=== PATIENT | male | born 1985 | race Caucasian/White ===

== ENCOUNTER 2018-11-22 14:15 | Inpatient (IN) | payer MEDICAID ==
--- NOTE | 2018-11-22 14:51 | EDM.PDOC ---
ED HPI GENERAL MEDICAL PROBLEM - General Chief Complaint: Skin Complaint Stated Complaint: SKIN COMPLAINT - R ARM Time Seen by Provider: 11/22/18 14:26 Source of Information: Reports: Patient, RN Notes Reviewed History Limitations: Reports: No Limitations - History of Present Illness INITIAL COMMENTS - FREE TEXT/NARRATIVE: The patient states that he has his own tattoo gun at home, and that he touched up a tattoo on his right forearm about 10 days ago. He states that he developed 3 pustules within the tattoo about 7 days ago, that he squeezed, draining small amounts of pus from each. The pustules then dried up and essentially healed. Around 3 dose ago, a fourth pustule developed within the tattoo. He again squeezed this point, getting a large amount of pus out, but since then, he has developed significant swelling to the pustule area, as well as surrounding erythema and swelling. No recent fever. The patient's last oral intake was around 11:00 this morning. The patient does not have a PCP. Right Arm Pain Score (Numeric/FACES): 4 - Related Data Allergies Allergy/AdvReac Type Severity Reaction Status Date / Time No Known Allergies Allergy Verified 11/22/18 14:31 Home Meds: Home Meds . [No Known Home Meds] 11/22/18 [History] Past Medical History - Past Surgical History HEENT Surgical History: Reports: Oral Surgery (3 wisdom teeth extracted) Musculoskeletal Surgical History: Reports: Other (See Below) (Right ankle tendon repair) Social & Family History - Tobacco Use Smoking Status *Q: Current Every Day Smoker Years of Tobacco use: 15 Packs/Tins Daily: 1 - Caffeine Use Caffeine Use: Reports: Coffee - Alcohol Use Alcohol Use History: Yes Alcohol Use Frequency: Socially - Recreational Drug Use Recreational Drug Use: No - Living Situation & Occupation Living situation: Reports: , with Spouse, with Family (3 kids) 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 Most of the tattoo is filled with a circular area of swelling and erythema measuring approximately 8 cm in diameter, and central to this area of erythema is a comedone of swelling that is open in the center and draining purulent fluid. The central area in particular is tender. Neurovascular status of the right upper extremity is intact.) Course - Vital Signs Last Recorded V/S: Last Vital Signs Temp 37.1 C 11/22/18 14:25 Pulse 109 H 11/22/18 14:25 Resp 16 11/22/18 14:25 BP 154/97 H 11/22/18 14:25 Pulse Ox 100 11/22/18 14:25 - Orders/Labs/Meds Labs: Laboratory Tests 11/22/18 11/22/18 Range/Units 14:50 14:55 WBC 14.45 H (4.23-9.07) K/mm3 RBC 4.66 (4.63-6.08) M/mm3 Hgb 14.2 (13.7-17.5) gm/L Hct 42.5 (40.1-51.0) % MCV 91.2 (79.0-92.2) fl MCH 30.5 (25.7-32.2) pg MCHC 33.4 (32.2-35.5) g/dl RDW Std Deviation 43.5 (35.1-43.9) fL Plt Count 306 (163-337) K/mm3 MPV 10.8 (9.4-12.3) fl Neutrophils % (Manual) 72 H (40-60) % Band Neutrophils % 2 (0-10) % Lymphocytes % (Manual) 23 (20-40) % Atypical Lymphs % 0 % Monocytes % (Manual) 3 (2-10) % Eosinophils % (Manual) 0 L (0.8-7.0) % Basophils % (Manual) 0 L (0.2-1.2) Platelet Estimate Adequate RBC Morph Comment Normal MRSA (PCR) Positive H - Re-Assessments/Exams Free Text/Narrative Re-Assessment/Exam: 11/22/18 14:45 The abscess on the patient's right forearm appears to be fairly advanced, and may benefit from surgical debridement. Case discussed with Dr. Remy Appiah, surgeon environmental science instructor, at 14:44. He will come by the ED to evaluate the patient. 11/22/18 14:51 I have ordered a nasal swab MRSA by PCR screen. Based on the results, I will then order appropriate IV antibiotics. 11/22/18 15:22 Dr. Appiah has evaluated the patient. Because the patient ate around 11:00, it is too early for him to go for general anesthesia, therefore Dr. Appiah offered to perform an I&D under local anesthetic, noting that it will likely be inadequate, and will likely be painful. The patient is willing to proceed. Dr. Appiah noted that the patient will lose some of the tattoo, which the patient said he was okay with. 11/22/18 15:43 Dr. Appiah performed an I&D of the abscess here in the ED, recovering only a small amount of annular material. He said that the patient seems to have significant cellulitis. He is recommending admission to the hospital for IV antibiotics, noting that if the infection does not improve fairly soon, the patient was a risk of developing compartment syndrome. I checked with lab - the MRSA screen will be resulted around 16:13. 11/22/18 15:[address] Hathaway at 15:44. He he agreed to accept the patient for admission to the general medical floor. He would like me to add a CBC. 11/22/18 16:24 The MRSA by PCR screen has returned positive. I will start the patient on IV vancomycin. Departure - Departure Time of Disposition: 15:49 Disposition: DC/Tfer to Acute Hospital 02 Condition: Fair Clinical Impression: Cellulitis of right forearm - Discharge Information *PRESCRIPTION DRUG MONITORING PROGRAM REVIEWED*: Not Applicable *COPY OF PRESCRIPTION DRUG MONITORING REPORT IN PATIENT LANG: Not Applicable Referrals: PCP,None [Primary Care Provider] - Forms: ED Department Discharge
[2018-11-22] MEDS ORDERED: Lidocaine 1% 50 ML MDV INJECT STA (16:00)
[2018-11-22] MEDS ORDERED: Vancomycin 1.3 GM in Sodium Chloride 0.9% 250 ML IV STA (16:29)
[2018-11-22] MEDS ORDERED: Vancomycin 1 GM SDV ONE (16:40)
[2018-11-22] MEDS ORDERED: Vancomycin 500 MG SDV ONE (16:40)
[2018-11-22] MEDS ORDERED: HYDROmorphone 1 MG/ML Syringe IVPUSH ONE (16:57)
--- NOTE | 2018-11-22 16:57 | OR ---
DATE OF OPERATION: 11/22/2018 SURGEON: Remy Appiah MD PREOPERATIVE DIAGNOSIS: Abscess versus cellulitis of the right forearm. POSTOPERATIVE DIAGNOSIS: Cellulitis of the right forearm. OPERATION PERFORMED: Incision and drainage of abscess of the right forearm. COMPLICATIONS: None. ESTIMATED BLOOD LOSS: Minimal. ANESTHESIA: 2 mL of 1% lidocaine. DISPOSITION: Stable during the entirety and at the end of the procedure. FINDINGS: He has a near-circumferential area of cellulitis around the right forearm with several punctate areas of recent drainage. The central area of necrosis appears to be the area of maximum tenderness, a question of abscesses is there. After exploration, I identified just a small amount of pus, but the remainder of the exploration did not reveal pus, just indurated and erythematous thickened tender skin. INDICATIONS: The patient is a 32-year-old male who presented to the ED after having evacuated a pustule on his right arm. He has a tattoo kit at home. He has been touching up his tattoo on his right forearm by himself on his unsterilized needles. He had popped 2 pustules previously over the last several days. These have healed. However, yesterday, he developed increasing pain and tenderness at one location distal to the original pustule. He evacuated a large amount of pus overnight. His arm became more swollen and tender. He drained a large amount of pus this morning from the same site, however, he has had no relief from pain, and he presented to the ED. He was offered incision and drainage. He was fully informed of the major risks, benefits, and alternatives, the risks of being pain, bleeding, infection, recurrent surgery, injury to the nerves and vessels of the right forearm. He gave informed consent to what was done. DESCRIPTION OF PROCEDURE: The patient was placed in supine position on the stretcher. His arm was prepped out and draped with Betadine infused to the skin and subcutaneous tissue in a longitudinal fashion proximally and distally to the area of central necrosis. In a linear fashion, a #11 the blade was used to open the skin deeply down to the subcutaneous tissue. I made approximately 3 cm incision through the previous opening. I opened the incision and explored with a Suni clamp. I relieved just a small amount of pus from the area, but aside from some symptom relief, cellulitis did not improve significantly arguing against a large abscess collection, this appears to be just cellulitis. After a thorough careful exploration of the entirety of the wound, I irrigated the inside of the incision with 1% lidocaine and covered with a dry sterile dressing. He reported some symptomatic relief in terms of pressure immediately following the incision and drainage. PLAN: He can be admitted to the floor on IV antibiotics. He has agreed to stay in the hospital. We will follow him closely for development of compartment syndrome. Currently all of his neurologic function and sensation are intact. If his condition worsens, we will get an orthopedic consult for possible exploration of these compartments. MMODAL /[id number]
[2018-11-22] MEDS ORDERED: Ondansetron 4 MG Tab.DIS PO PRN (20:37)
[2018-11-22] MEDS ORDERED: HYDROmorphone 1 MG/ML Syringe IVPUSH PRN (20:41)
--- NOTE | 2018-11-22 20:51 | PCM.HP ---
H&P History of Present Illness - General Date of Service: 11/22/18 Admit Problem/Dx: Admission Diagnosis/Problem Admission Diagnosis/Problem Cellulitis Source of Information: Patient, Provider - History of Present Illness Initial Comments - Free Text/Narative: This 32-year-old male presented to the emergency room with worsening right forearm pain, swelling, redness, and discharge. Patient has a tattoo gun and he was touching up a tattoo approximately 10 days ago. Approximate 7 days ago he started developing redness and two pustules formed. He was able to evacuate the 2 initial pustules but then the third and fourth subsequently developed. Redness worsened over the last few days and pain became severe today bringing him into the emergency room. Last night and this morning he evacuated a large area and a large amount of pus was evacuated. In the emergency room patient had an I&D performed of the right arm but only a small amount of pus was drained. MRSA screening was positive and patient was started on vancomycin and admitted for further antibiotic treatment. Patient denies any fever throughout this episode. He does complain of moderate to severe pain of the right forearm. Right Arm Pain Score (Numeric/FACES): 4 - Related Data Allergies/Adverse Reactions: Allergies Allergy/AdvReac Type Severity Reaction Status Date / Time No Known Allergies Allergy Verified 11/22/18 18:42 Home Medications: Home Meds . [No Known Home Meds] 11/22/18 [History] Past Medical History - Past Health History Medical/Surgical History: Denies Medical/Surgical History - Infectious Disease History Infectious Disease History: Reports: MRSA - Past Surgical History HEENT Surgical History: Reports: Oral Surgery Other HEENT Surgeries/Procedures: wisdom teeth Musculoskeletal Surgical History: Reports: Other (See Below) Other Musculoskeletal Surgeries/Procedures:: ankle sx Social & Family History - Family History Family Medical History: Noncontributory - Tobacco Use Smoking Status *Q: Current Every Day Smoker Years of Tobacco use: 15 Packs/Tins Daily: 1 - Caffeine Use Caffeine Use: Reports: Coffee - Recreational Drug Use Recreational Drug Use: No - Living Situation & Occupation Living situation: Reports: , with Spouse, with Family (3 kids) 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 Exam - Exam Exam: See Below - Vital Signs Vital Signs: Last Vital Signs Temp 98.7 F 11/22/18 14:25 Pulse 109 H 11/22/18 14:25 Resp 16 11/22/18 14:25 BP 154/97 H 11/22/18 14:25 Pulse Ox 100 11/22/18 14:25 Weight: 161 lb 8 oz - Exam General: Alert, Oriented HEENT: Conjunctiva Clear, Hearing Intact, Mucosa Moist & [place] Neck: Supple, Trachea Midline Lungs: Clear to Auscultation, Normal Respiratory Effort Cardiovascular: Regular Rate, Regular Rhythm GI/Abdominal Exam: Normal Bowel Sounds, Soft, Non-Tender, No Organomegaly, No Distention Back Exam: Normal Inspection Extremities: Normal Inspection, Normal Range of Motion, Non-Tender, No Pedal Edema, Other (Right forearm has a bandage in place. There is large amount of erythema, tenderness, and warmth. He is neurovascularly intact distally with full range of motion of his fingers and hand.) Neurological: Cranial Nerves Intact Neuro Extensive - Mental Status: Alert, Oriented x3 Neuro Extensive - Motor, Sensory, Reflexes: CN II-XII Intact. No: Dysarthria Psychiatric: Alert, Normal Affect, Normal Mood - Patient Data Lab Results Last 24 hrs: Laboratory Results - last 24 hr 11/22/18 11/22/18 11/22/18 Range/Units 14:50 14:55 16:50 WBC 14.45 H (4.23-9.07) K/mm3 RBC 4.66 (4.63-6.08) M/mm3 Hgb 14.2 (13.7-17.5) gm/L Hct 42.5 (40.1-51.0) % MCV 91.2 (79.0-92.2) fl MCH 30.5 (25.7-32.2) pg MCHC 33.4 (32.2-35.5) g/dl RDW Std Deviation 43.5 (35.1-43.9) fL Plt Count 306 (163-337) K/mm3 MPV 10.8 (9.4-12.3) fl Neutrophils % (Manual) 72 H (40-60) % Band Neutrophils % 2 (0-10) % Lymphocytes % (Manual) 23 (20-40) % Atypical Lymphs % 0 % Monocytes % (Manual) 3 (2-10) % Eosinophils % (Manual) 0 L (0.8-7.0) % Basophils % (Manual) 0 L (0.2-1.2) Platelet Estimate Adequate RBC Morph Comment Normal C-Reactive Protein 6.0 H* (<1.0) mg/dL MRSA (PCR) Positive H Result Diagrams: 11/22/18 14:50 - Problem List (1) Positive result for methicillin resistant Staphylococcus aureus (MRSA) screening SNOMED Code(s): 787757705 ICD Code: Z22.322 - CARRIER OR SUSPECTED CARRIER OF METHICILLIN RESIS STAPH Status: Acute Current Visit: Yes Problem List Initiated/Reviewed/Updated: Yes Orders Last 24hrs: Active Orders 24 hr Category Date Time Status Admission Status [Patient Status] [ADT] Routine ADT 11/22/18 17:05 Active Notify Provider Consults [RC] ASDIRECTED Care 11/22/18 20:40 Ordered Oxygen Therapy [RC] PRN Care 11/22/18 20:37 Ordered Up ad Ronda [RC] ASDIRECTED Care 11/22/18 20:37 Ordered VTE/DVT Education [RC] PER UNIT ROUTINE Care 11/22/18 20:37 Ordered Vital Signs [RC] Q4H Care 11/22/18 20:37 Ordered Consult to Physician [CONS] Routine Cons 11/22/18 20:37 Ordered Regular Diet [DIET] Diet 11/22/18 Dinner Active C-REACTIVE PROTEIN [CHEM] AM Lab 11/23/18 05:11 Ordered CBC WITH AUTO DIFF [HEME] AM Lab 11/23/18 05:11 Ordered COMPREHENSIVE METABOLIC PN,CMP [CHEM] AM Lab 11/23/18 05:11 Ordered HYDROmorphone [Dilaudid] Med 11/22/18 20:41 Ordered 1 mg IVPUSH Q2H PRN Ibuprofen [Motrin] Med 11/22/18 20:43 Ordered 800 mg PO Q6H PRN Ondansetron [Zofran ODT] Med 11/22/18 20:37 Ordered 4 mg PO Q4H PRN Pharmacy to Dose - Vancomycin Med 11/22/18 20:45 Ordered 1 dose .XX ASDIRECTED oxyCODONE Med 11/22/18 20:37 Ordered 5 - 10 mg PO Q4H PRN Resuscitation Status Routine Resus Stat 11/22/18 17:35 Ordered Medication Orders Hydromorphone HCl (Dilaudid) 1 mg IVPUSH Q2H PRN PRN Reason: Pain (severe 7-10) Ibuprofen (Motrin) 800 mg PO Q6H PRN PRN Reason: Pain (mild 1-3) Ondansetron HCl (Zofran Odt) 4 mg PO Q4H PRN PRN Reason: nausea, able to take PO Oxycodone HCl (Oxycodone) 5 - 10 mg PO Q4H PRN PRN Reason: Pain (moderate 4-6) Vancomycin HCl (Pharmacy To Dose - Vancomycin) 1 dose .XX ASDIRECTED [facility] Assessment/Plan Comment:: Cellulitis post I&D right forearm * Consult Dr. Appiah and surgery * Start on vancomycin in the ER and we will have pharmacy to dose. * CBC shows an elevated white count of 14,000 and symmetric protein at 6 * Get CBC, CMP, and C-reactive protein the morning Tobaccoism * Patient does not want a patch at this time. * Encouraged to quit smoking. Anticipate length of stay 2 days.
[2018-11-22] MEDS: Ibuprofen 800 MG Tab PO PRN (21:38)
[2018-11-22] MEDS: oxyCODONE 5 MG Tab PO PRN (22:05)
[2018-11-23] MEDS: oxyCODONE 5 MG Tab PO PRN ×3 (03:34→13:34)
[2018-11-23] MEDS: Ibuprofen 800 MG Tab PO PRN (13:34)
--- NOTE | 2018-11-23 15:08 | PCM.DCSUM1 ---
Discharge Summary - Hospital Course HPI Initial Comments: This 32-year-old male presented to the emergency room with worsening right forearm pain, swelling, redness, and discharge. Patient has a tattoo gun and he was touching up a tattoo approximately 10 days ago. Approximate 7 days ago he started developing redness and two pustules formed. He was able to evacuate the 2 initial pustules but then the third and fourth subsequently developed. Redness worsened over the last few days and pain became severe today bringing him into the emergency room. Last night and this morning he evacuated a large area and a large amount of pus was evacuated. In the emergency room patient had an I&D performed of the right arm but only a small amount of pus was drained. MRSA screening was positive and patient was started on vancomycin and admitted for further antibiotic treatment. Patient denies any fever throughout this episode. He does complain of moderate to severe pain of the right forearm. Brief History: patient received vancomycin overnight due to positive MRSA screening. He did well and will be switched to oral doxycycline. Diagnosis: Stroke: No - Discharge Data Discharge Date: 11/23/18 Discharge Disposition: Home, Self-Care 01 Condition: Good - Discharge Diagnosis/Problem(s) (1) Positive result for methicillin resistant Staphylococcus aureus (MRSA) screening SNOMED Code(s): 477332637 ICD Code: Z22.322 - CARRIER OR SUSPECTED CARRIER OF METHICILLIN RESIS STAPH Status: Acute Current Visit: Yes - Patient Summary/Data Consults: Consultations 11/22/18 20:37 Consult to Physician [CONS] Routine - Patient Instructions Diet: Usual Diet as Tolerated Activity: As Tolerated Driving: May Drive Today Showering/Bathing: May Shower Other/Special Instructions: Follow up with Dr. Appiah this week. 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 - Discharge Plan *PRESCRIPTION DRUG MONITORING PROGRAM REVIEWED*: Not Applicable *COPY OF PRESCRIPTION DRUG MONITORING REPORT IN PATIENT LANG: Not Applicable Prescriptions/Med Rec: Doxycycline Monohydrate 100 mg PO BID 10 Days #20 capsule Hydrocodone/Acetaminophen [Mil[place] 5-325 Tablet] 1 - 2 each PO Q4H #6 tablet Home Medications: Home Meds Doxycycline Monohydrate 100 mg PO BID 10 Days #20 capsule 11/23/18 [Rx] Hydrocodone/Acetaminophen [Milan 5-325 Tablet] 1 - 2 each PO Q4H #6 tablet 11/23 [Rx] Patient Handouts: Cellulitis, Adult, [id number] Forms: ED Department Discharge Referrals: PCP,None [Primary Care Provider] - Remy Appiah MD [Physician] - - Discharge Summary/Plan Comment DC Time >30 min.: No Discharge Summary/Plan Comment: because the patient's MRSA screen was positive, he was placed on vancomycin for 24 hours and had significant improvement. Patient has difficulty at home with child caring so it was decided to send him home on doxycycline based on our antimicrobial susceptibility report. Tetracycline was 100% sensitive to MRSA and her last quarterly susceptibility testing. Patient was sent home with doxycycline 100 mg twice a day for 10 days and [place] 5/325 one to 2 tabs every 4 hours when necessary pain #6 out of the [facility] dispenser. patient will follow-up with Dr. Appiah in surgery this week. - General Info Date of Service: 11/23/18 Admission Dx/Problem (Free Text: Admission Diagnosis/Problem Admission Diagnosis/Problem Cellulitis Subjective Update: significant improvement overnight. Decreased swelling and erythema right forearm. Decrease in pain. - Review of Systems General: Reports: No Symptoms HEENT: Reports: No Symptoms Pulmonary: Reports: No Symptoms. Denies: Shortness of Breath Cardiovascular: Reports: No Symptoms. Denies: Chest Pain, Dyspnea on Exertion Gastrointestinal: Reports: No Symptoms. Denies: Abdominal Pain Musculoskeletal: Reports: No Symptoms - Patient Data Vitals - Most Recent: Last Vital Signs Temp 97.9 F 11/23/18 13:54 Pulse 62 11/23/18 13:54 Resp 14 11/23/18 13:54 BP 121/68 11/23/18 13:54 Pulse Ox 97 11/23/18 13:54 Weight - Most Recent: 161 lb 1.6 oz I&O - Last 24 hours: Intake & Output 11/23/18 11/23/18 11/23/18 06:59 14:59 22:59 Intake Total 1050 600 Balance 1050 600 Lab Results - Last 24 hrs: Laboratory Results - last 24 hr 11/22/18 11/22/18 11/22/18 Range/Units 14:50 14:55 16:50 WBC 14.45 H (4.23-9.07) K/mm3 RBC 4.66 (4.63-6.08) M/mm3 Hgb 14.2 (13.7-17.5) gm/L Hct 42.5 (40.1-51.0) % MCV 91.2 (79.0-92.2) fl MCH 30.5 (25.7-32.2) pg MCHC 33.4 (32.2-35.5) g/dl RDW Std Deviation 43.5 (35.1-43.9) fL Plt Count 306 (163-337) K/mm3 MPV 10.8 (9.4-12.3) fl Neut % (Auto) (34.0-67.9) % Lymph % (Auto) (21.8-53.1) % [place] % (Auto) (5.3-12.2) % Eos % (Auto) (0.8-7.0) Baso % (Auto) (0.1-1.2) % Neut # (Auto) (1.78-5.38) K/mm3 Lymph # (Auto) (1.32-3.57) K/mm3 [place] # (Auto) (0.30-0.82) K/mm3 Eos # (Auto) (0.04-0.54) K/mm3 Baso # (Auto) (0.01-0.08) K/mm3 Neutrophils % (Manual) 72 H (40-60) % Band Neutrophils % 2 (0-10) % Lymphocytes % (Manual) 23 (20-40) % Atypical Lymphs % 0 % Monocytes % (Manual) 3 (2-10) % Eosinophils % (Manual) 0 L (0.8-7.0) % Basophils % (Manual) 0 L (0.2-1.2) Manual Slide Review Platelet Estimate Adequate RBC Morph Comment Normal Sodium (136-145) mEq/L Potassium (3.5-5.1) mEq/L Chloride (98-107) mEq/L Carbon Dioxide (21-32) mEq/L Anion Gap (5-15) BUN (7-18) mg/dL Creatinine (0.7-1.3) mg/dL Est Cr Clr Drug Dosing mL/min Estimated GFR (MDRD) (>60) mL/min BUN/Creatinine Ratio (14-18) Glucose (74-106) mg/dL Calcium (8.5-10.1) mg/dL Total Bilirubin (0.2-1.0) mg/dL AST (15-37) U/L ALT (16-63) U/L Alkaline Phosphatase (46-116) U/L C-Reactive Protein 6.0 H* (<1.0) mg/dL Total Protein (6.4-8.2) g/dl Albumin (3.4-5.0) g/dl Globulin gm/dL Albumin/Globulin Ratio (1-2) MRSA (PCR) Positive H 11/23/18 11/23/18 Range/Units 04:18 04:18 WBC 11.40 H (4.23-9.07) K/mm3 RBC 4.19 L (4.63-6.08) M/mm3 Hgb 12.7 L D (13.7-17.5) gm/L Hct 38.9 L (40.1-51.0) % MCV 92.8 H (79.0-92.2) fl MCH 30.3 (25.7-32.2) pg MCHC 32.6 (32.2-35.5) g/dl RDW Std Deviation 42.7 (35.1-43.9) fL Plt Count 260 (163-337) K/mm3 MPV 11.0 (9.4-12.3) fl Neut % (Auto) 53.7 (34.0-67.9) % Lymph % (Auto) 33.3 (21.8-53.1) % [place] % (Auto) 10.6 (5.3-12.2) % Eos % (Auto) 1.7 (0.8-7.0) Baso % (Auto) 0.4 (0.1-1.2) % Neut # (Auto) 6.13 H (1.78-5.38) K/mm3 Lymph # (Auto) 3.80 H (1.32-3.57) K/mm3 [place] # (Auto) 1.21 H (0.30-0.82) K/mm3 Eos # (Auto) 0.19 (0.04-0.54) K/mm3 Baso # (Auto) 0.04 (0.01-0.08) K/mm3 Neutrophils % (Manual) (40-60) % Band Neutrophils % (0-10) % Lymphocytes % (Manual) (20-40) % Atypical Lymphs % % Monocytes % (Manual) (2-10) % Eosinophils % (Manual) (0.8-7.0) % Basophils % (Manual) (0.2-1.2) Manual Slide Review Not Reportable Platelet Estimate RBC Morph Comment Sodium 140 (136-145) mEq/L Potassium 3.5 (3.5-5.1) mEq/L Chloride 104 (98-107) mEq/L Carbon Dioxide 27 (21-32) mEq/L Anion Gap 12.5 (5-15) BUN 15 (7-18) mg/dL Creatinine 0.9 (0.7-1.3) mg/dL Est Cr Clr Drug Dosing 120.54 mL/min Estimated GFR (MDRD) > 60 (>60) mL/min BUN/Creatinine Ratio 16.7 (14-18) Glucose 91 (74-106) mg/dL Calcium 8.6 (8.5-10.1) mg/dL Total Bilirubin 0.2 (0.2-1.0) mg/dL AST 12 L (15-37) U/L ALT 15 L (16-63) U/L Alkaline Phosphatase 77 (46-116) U/L C-Reactive Protein 3.5 H* (<1.0) mg/dL Total Protein 6.4 (6.4-8.2) g/dl Albumin 3.4 (3.4-5.0) g/dl Globulin 3.0 gm/dL Albumin/Globulin Ratio 1.1 (1-2) MRSA (PCR) Med Orders - Current: Current Medications Doxycycline Hyclate (Vibramycin) 100 mg PO ONETIME ONE Stop: 11/23/18 17:01 Hydromorphone HCl (Dilaudid) 1 mg IVPUSH Q2H PRN PRN Reason: Pain (severe 7-10) Last Admin: 11/22/18 21:37 Dose: 1 mg Vancomycin HCl 1 gm/ Sodium (Chloride) 250 mls @ 250 mls/hr IV Q8H ILA Last Admin: 11/23/18 09:18 Dose: 250 mls/hr Ibuprofen (Motrin) 800 mg PO Q6H PRN PRN Reason: Pain (mild 1-3) Last Admin: 11/23/18 13:34 Dose: 800 mg Ondansetron HCl (Zofran Odt) 4 mg PO Q4H PRN PRN Reason: nausea, able to take PO Oxycodone HCl (Oxycodone) 5 - 10 mg PO Q4H PRN PRN Reason: Pain (moderate 4-6) Last Admin: 11/23/18 13:34 Dose: 10 mg Vancomycin HCl (Pharmacy To Dose - Vancomycin) 0 dose .XX ASDIRECTED PRN PRN Reason: RX TO DOSE VANCOMYCIN Discontinued Medications Hydromorphone HCl (Dilaudid) 1 mg IVPUSH ONETIME ONE Stop: 11/22/18 16:58 Last Admin: 11/22/18 17:04 Dose: 1 mg Vancomycin HCl 1.3 gm/ Sodium (Chloride) 250 mls @ 250 mls/hr IV ONETIME STA Stop: 11/22/18 17:28 Last Admin: 11/22/18 16:53 Dose: 250 mls/hr Vancomycin HCl 1 gm/ Sodium (Chloride) 250 mls @ 250 mls/hr IV Q8H ILA Last Admin: 11/23/18 02:00 Dose: Not Given Vancomycin HCl 1 gm/ Sodium (Chloride) 250 mls @ 250 mls/hr IV ONETIME ONE Stop: 11/23/18 02:29 Last Admin: 11/23/18 01:42 Dose: 250 mls/hr Lidocaine HCl (Xylocaine 1%) 50 ml INJECT ONETIME STA Stop: 11/22/18 16:01 Last Admin: 11/22/18 16:00 Dose: 50 ml Vancomycin HCl (Vancomycin) Confirm Administered Dose 1 gm .ROUTE .STK-MED ONE Stop: 11/22/18 16:41 Last Admin: 11/22/18 16:54 Dose: Not Given Vancomycin HCl (Vancomycin) Confirm Administered Dose 500 mg .ROUTE .STK-MED ONE Stop: 11/22/18 16:41 Last Admin: 11/22/18 16:54 Dose: Not Given - Exam General: Reports: Alert, Oriented HEENT: Reports: Pupils Equal Neck: Reports: Supple Lungs: Reports: Clear to Auscultation, Normal Respiratory Effort Cardiovascular: Reports: Regular Rate, Regular Rhythm GI/Abdominal Exam: Normal Bowel Sounds, Soft, Non-Tender, No Organomegaly, No Distention Back Exam: Reports: Normal Inspection Extremities: Normal Inspection, Normal Range of Motion, Non-Tender, No Pedal Edema Skin: Reports: Other (decreased redness and swelling in the right forearm.) Psy/Mental Status: Reports: Alert
[2018-11-23] MEDS ORDERED: Doxycycline 100 MG Cap PO ONE (17:00)
[2018-11-23] MEDS ORDERED: Vancomycin 1 GM SDV ONE (17:01)
== END 2018-11-23 18:22 | disposition home or self-care (01) | DRG 603 ==
LOC: JD.ED 14:15 → JD.MS 17:05
PROVIDERS: ADMIT Family Medicine; ATTEND Family Medicine
PROC: 0H9DXZZ Drainage of Right Lower Arm Skin, External Approach (ICD-10-PCS; principal; 2018-11-22)
DX: L03.113 Cellulitis of right upper limb (principal); Z22.322 Carrier or suspected carrier of Methicillin resistant Staphylococcus aureus; F17.210 Nicotine dependence, cigarettes, uncomplicated; L02.413 Cutaneous abscess of right upper limb
CPT/HCPCS: 10060; 36415; 80053; 80202; 85007; 85025; 85027; 86140; 87641; 96374; 96375; 99284-25; A9270-GY; J1170; J2001; J3370; J7050